=== PATIENT | female | born 1965 | race Asian ===

== ENCOUNTER 2024-09-15 23:02 | Emergency (ER) | payer MEDICAID ==
[~2024-09-15] VITALS: Ht 170.2 cm; Wt 55.0 kg
[2024-09-15 23:04] VITALS: BP 128/71; PULSE 81; RESP 16; TEMP 37.1; O2SAT 98
[2024-09-16] MEDS: LIDOCAINE 5% PATCH TOP SCH (01:30)
[2024-09-16] MEDS ORDERED: NAPR-1176 MT (01:38)
[2024-09-16] MEDS ORDERED: LIDO700A15 TP (01:42)
[2024-09-16] MEDS: KETOROLAC 15MG/ML VIAL IM ONE (02:22)
[2024-09-16] MEDS: CYCLOBENZAPRINE 10MG TABLET PO ONE (02:22)
== END 2024-09-16 03:14 | disposition home or self-care (01) ==
LOC: ER 09-16 00:09
DX: M54.9 Dorsalgia, unspecified (principal); Z79.1 Long term (current) use of non-steroidal anti-inflammatories (NSAID); Y04.0XXA Assault by unarmed brawl or fight, initial encounter; Y93.89 Activity, other specified; Y92.89 Other specified places as the place of occurrence of the external cause; Y99.8 Other external cause status
CPT/HCPCS: 99283

== ENCOUNTER 2025-06-09 13:30 | Emergency (ER) | payer BC, MEDICAID ==
[~2025-06-09] VITALS: Ht 165.1 cm; Wt 65.0 kg
[~2025-06-09 13:30] MED LIST: LIDO-53 TP; NAPR-1176 MT
[2025-06-09 13:39] VITALS: O2SAT 99
[2025-06-09] MEDS ORDERED: DEXAMETHASONE 1 MG/ML ORAL SYR PO ONE (15:00)
[2025-06-09 15:20] LABS: CLARITY URINE CLEAR (CLEAR); COLOR URINE YELLOW (YELLOW); GLUCOSE URINE NEGATIVE (NEGATIVE); KETONES URINE NEGATIVE (NEGATIVE); LEUKOCYTE ESTERASE URINE NEGATIVE (NEGATIVE); NITRITE URINE NEGATIVE (NEGATIVE); OCCULT BLOOD URINE NEGATIVE (NEGATIVE); PH URINE 6.0 (4.5-8.0); PROTEIN URINE NEGATIVE (NEGATIVE); SPECIFIC GRAVITY URINE 1.014 (1.005-1.030); UROBILINOGEN URINE 0.2 E.U./dL (0.2-1.0)
[2025-06-09 15:25] VITALS: PULSE 80; RESP 20
[2025-06-09] MEDS: ALBUTEROL (0.083%) 2.5MG/3ML NEB HHN ONE (15:25)
[2025-06-09] MEDS: IPRATROPIUM BROMIDE (0.02%) 0.5MG/2.5ML NEB HHN ONE (15:25)
[2025-06-09] MEDS: DEXAMETHASONE 4MG TABLET PO SCH (17:02)
[2025-06-09 18:11] VITALS: BP 128/64; PULSE 77; RESP 14; TEMP 36.8; O2SAT 100
== END 2025-06-09 18:12 | disposition home or self-care (01) ==
LOC: ER 13:30
DX: T78.19XA Other adverse food reactions, not elsewhere classified, initial encounter (principal); L29.9 Pruritus, unspecified; R06.02 Shortness of breath; Z79.1 Long term (current) use of non-steroidal anti-inflammatories (NSAID); X58.XXXA Exposure to other specified factors, initial encounter
CPT/HCPCS: 81003; 81025; 71045; 94640; 99284; J8540; Z7610 ×3; 94070; 94664

== ENCOUNTER 2025-07-03 12:43 | Emergency (ER) | payer MEDICAID ==
[~2025-07-03] VITALS: Ht 162.6 cm; Wt 61.0 kg
[2025-07-03] MEDS: DIVALPROEX SODIUM 250MG ER TABLET PO ONE (00:05)
[2025-07-03 12:45] VITALS: O2SAT 100
[2025-07-03 13:31] LABS: CLARITY URINE CLEAR (CLEAR); COLOR URINE YELLOW (YELLOW); GLUCOSE URINE NEGATIVE (NEGATIVE); KETONES URINE NEGATIVE (NEGATIVE); LEUKOCYTE ESTERASE URINE NEGATIVE (NEGATIVE); NITRITE URINE NEGATIVE (NEGATIVE); OCCULT BLOOD URINE NEGATIVE (NEGATIVE); PH URINE 6.5 (4.5-8.0); PROTEIN URINE NEGATIVE (NEGATIVE); SPECIFIC GRAVITY URINE 1.013 (1.005-1.030); UROBILINOGEN URINE 0.2 E.U./dL (0.2-1.0)
[2025-07-03 13:59] LABS: *AMPHETAMINES SCREEN URINE NEGATIVE (NEGATIVE); *BARBITURATES SCREEN URINE NEGATIVE (NEGATIVE); *BENZODIAZEPINES SCREEN URINE NEGATIVE (NEGATIVE); *COCAINE SCREEN URINE NEGATIVE (NEGATIVE); CANNABINOID URINE SCREEN NEGATIVE (NEGATIVE); ECSTASY MDMA SCREEN URINE NEGATIVE (NEGATIVE); METHADONE URINE SCREEN NEGATIVE (NEGATIVE); OPIATES URINE SCREEN NEGATIVE (NEGATIVE); PHENCYCLIDINE URINE SCREEN NEGATIVE (NEGATIVE)
[2025-07-03 15:10] LABS: BASOPHILS % 0.5 % (0.0-2.0); EOSINOPHILS % 2.4 % (0.0-5.0); HEMATOCRIT. 35.9 % (36.0-48.0); HEMOGLOBIN. 11.9 g/dL (12.0-16.0); LYMPHOCYTES % 25.4 % (20.0-50.0); MEAN PLATELET VOLUME 8.8 fl (7.4-10.4); MONOCYTES % 7.6 % (2.0-8.0); NEUTROPHILS % 64.1 % (40.0-76.0); PLATELET 196 x1000/uL (130-400); RED BLOOD CELL COUNT 3.90 mill/uL (4.2-5.4); RED CELL DISTRIBUTION WIDTH 13.3 % (11.6-14.6)
[2025-07-03 15:25] LABS: CREATININE 0.6 mg/dL (0.6-1.0); UREA NITROGEN BLOOD 17 mg/dL (9-23)
[2025-07-03 15:26] LABS: ETHANOL BLOOD < 10 mg/dL (<10)
[2025-07-03 15:27] LABS: ASPARTATE AMINOTRANSFERASE 16 IU/L (<34)
[2025-07-03 15:28] LABS: BILIRUBIN TOTAL 0.4 mg/dL (0.1-1.0); PROTEIN TOTAL 6.5 g/dL (6.0-8.3)
[2025-07-03] MEDS ORDERED: RISPERIDONE 1MG TABLET PO SCH (21:00)
[2025-07-03] MEDS: TRAZODONE HCL 50MG TABLET PO SCH (23:51)
[2025-07-04] MEDS: RISPERIDONE 1MG TABLET PO SCH (00:05)
[2025-07-04] MEDS ORDERED: RISPERIDONE 1MG TABLET PO SCH (09:00)
[2025-07-04 10:00] VITALS: BP 112/70; PULSE 74; RESP 16; TEMP 36.9; O2SAT 100
== END 2025-07-04 11:05 | disposition home or self-care (01) ==
LOC: ER 12:43
DX: R51.9 Headache, unspecified (principal); Z79.899 Other long term (current) drug therapy; Z20.822 Contact with and (suspected) exposure to COVID-19
CPT/HCPCS: 80053; 80305; 81003; 80307; 80329; 80320; 85025; 36415; 99285; 87426; Z7610; G0480

== ENCOUNTER 2025-07-14 18:15 | Emergency (ER) | payer MEDICAID ==
[~2025-07-14] VITALS: Ht 165.1 cm; Wt 55.0 kg
[2025-07-14 18:20] VITALS: O2SAT 98
[2025-07-14 21:21] LABS: CLARITY URINE CLEAR (CLEAR); COLOR URINE YELLOW (YELLOW); GLUCOSE URINE NEGATIVE (NEGATIVE); KETONES URINE NEGATIVE (NEGATIVE); LEUKOCYTE ESTERASE URINE 2+ (NEGATIVE); NITRITE URINE NEGATIVE (NEGATIVE); OCCULT BLOOD URINE NEGATIVE (NEGATIVE); PH URINE 6.5 (4.5-8.0); PROTEIN URINE NEGATIVE (NEGATIVE); SPECIFIC GRAVITY URINE 1.010 (1.005-1.030); UROBILINOGEN URINE 0.2 E.U./dL (0.2-1.0)
[2025-07-14 21:29] LABS: *AMPHETAMINES SCREEN URINE NEGATIVE (NEGATIVE); *BARBITURATES SCREEN URINE NEGATIVE (NEGATIVE); *BENZODIAZEPINES SCREEN URINE NEGATIVE (NEGATIVE); *COCAINE SCREEN URINE NEGATIVE (NEGATIVE); ECSTASY MDMA SCREEN URINE NEGATIVE (NEGATIVE); METHADONE URINE SCREEN NEGATIVE (NEGATIVE); OPIATES URINE SCREEN NEGATIVE (NEGATIVE); PHENCYCLIDINE URINE SCREEN NEGATIVE (NEGATIVE)
[2025-07-14 21:39] LABS: CANNABINOID URINE SCREEN NEGATIVE (NEGATIVE)
[2025-07-14 21:57] LABS: BACTERIA URINE 1+; RBC URINE 0-2 /hpf (0-2); SQUAMOUS EPITHELIAL CELL URINE FEW /lpf (RARE/1+)
[2025-07-14] MEDS: CEPHALEXIN 250MG CAPSULE PO ONE (22:29)
[2025-07-14 22:41] LABS: BASOPHILS % 0.3 % (0.0-2.0); EOSINOPHILS % 2.9 % (0.0-5.0); HEMATOCRIT. 39.0 % (36.0-48.0); HEMOGLOBIN. 12.6 g/dL (12.0-16.0); LYMPHOCYTES % 37.5 % (20.0-50.0); MEAN PLATELET VOLUME 9.3 fl (7.4-10.4); MONOCYTES % 8.3 % (2.0-8.0); NEUTROPHILS % 51.0 % (40.0-76.0); PLATELET 165 x1000/uL (130-400); RED BLOOD CELL COUNT 4.31 mill/uL (4.2-5.4); RED CELL DISTRIBUTION WIDTH 13.0 % (11.6-14.6)
[2025-07-14 22:57] LABS: CREATININE 0.9 mg/dL (0.6-1.0); ETHANOL BLOOD < 10 mg/dL (<10); UREA NITROGEN BLOOD 17 mg/dL (9-23)
[2025-07-15] MEDS ORDERED: LORAZEPAM 0.5MG TABLET PO ONE (00:30)
[2025-07-15] MEDS: LORAZEPAM 0.5MG TABLET PO ONE (00:30)
[2025-07-15] MEDS ORDERED: PHENAZOPYRIDINE HCL 100MG TABLET PO PRN (00:45)
[2025-07-15] MEDS: LORAZEPAM 1MG TABLET PO ONE (01:04)
[2025-07-15] MEDS: PHENAZOPYRIDINE HCL 100MG TABLET PO ONE (01:04)
[2025-07-15] MEDS: CEPHALEXIN 250MG CAPSULE PO SCH (09:00)
[2025-07-15 13:09] VITALS: BP 130/70; PULSE 90; RESP 16; TEMP 36.9; O2SAT 98
== END 2025-07-15 18:06 | disposition home or self-care (01) ==
LOC: ER 18:15
DX: N30.00 Acute cystitis without hematuria (principal); F20.9 Schizophrenia, unspecified; G47.00 Insomnia, unspecified; Z79.899 Other long term (current) drug therapy; Z20.822 Contact with and (suspected) exposure to COVID-19
CPT/HCPCS: 36415; 80048; 80305; 80307; 80320; 80329; 81003; 85025; 87426; 93005; 99284; G0480